=== PATIENT | female | born 1995 ===

== ENCOUNTER 2025-03-08 09:02 | Outpatient (CLI) | payer OTHER | END 2025-03-08 09:11 | disposition home or self-care (01) | LOC: PRENATAL 09:02 | PROVIDERS: ATTEND Obstetrics & Gynecology Maternal & Fetal Medicine | DX: O44.00 Complete placenta previa NOS or without hemorrhage, unspecified trimester (principal); O10.019 Pre-existing essential hypertension complicating pregnancy, unspecified trimester; Z3A.21 21 weeks gestation of pregnancy ==

== ENCOUNTER → 2025-04-16 09:34 | Outpatient (CLI) | payer OTHER | END | disposition home or self-care (01) | LOC: PRENATAL 09:34 | PROVIDERS: ATTEND Obstetrics & Gynecology Maternal & Fetal Medicine | DX: O26.849 Uterine size-date discrepancy, unspecified trimester (principal); O10.019 Pre-existing essential hypertension complicating pregnancy, unspecified trimester; O34.10 Maternal care for benign tumor of corpus uteri, unspecified trimester; Z3A.27 27 weeks gestation of pregnancy ==

== ENCOUNTER 2025-06-03 09:43 | Outpatient (CLI) | payer OTHER | END 2025-06-03 09:44 | disposition home or self-care (01) | LOC: PRENATAL 09:43 | PROVIDERS: ATTEND Obstetrics & Gynecology Maternal & Fetal Medicine | DX: O26.849 Uterine size-date discrepancy, unspecified trimester (principal); O36.8199 Decreased fetal movements, unspecified trimester, other fetus; O10.019 Pre-existing essential hypertension complicating pregnancy, unspecified trimester; Z3A.33 33 weeks gestation of pregnancy ==